=== PATIENT | male | born 1975 | race Caucasian/White ===

== ENCOUNTER → 2016-12-13 13:48 | Emergency (ER) | payer SELFPAY ==
[2016-12-13 13:59] VITALS: BP 103/80
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
== END | disposition home or self-care (01) ==
LOC: ED 13:48
DX: M25.561 Pain in right knee (principal); S60.042A Contusion of left ring finger without damage to nail, initial encounter; S50.01XA Contusion of right elbow, initial encounter; Y04.0XXA Assault by unarmed brawl or fight, initial encounter; Y92.149 Unspecified place in prison as the place of occurrence of the external cause; F43.10 Post-traumatic stress disorder, unspecified; F41.9 Anxiety disorder, unspecified; I10 Essential (primary) hypertension; K21.9 Gastro-esophageal reflux disease without esophagitis; M77.9 Enthesopathy, unspecified
CPT/HCPCS: 99281

== ENCOUNTER 2017-02-06 07:22 | Day surgery (SDC) | payer OTHER ==
[~2017-02-06 07:22] MED LIST: Buffered Lidocaine 0.9% SYRIN* 5 ML/SYR SYRINGE INTRADERM ONE
[2017-02-06] MEDS ORDERED: Buffered Lidocaine 0.9% SYRIN* 5 ML/SYR SYRINGE ONE (07:32)
[2017-02-06] MEDS ORDERED: ceFAZolin 2 GM PREMIX (*) 2 GM/50 ML BAG IVPB ONE (07:32)
[2017-02-06] MEDS ORDERED: fentaNYL* 50 MCG/ML 2 ML VIAL (100 MCG VIAL) ONE ×2 (08:49→10:20)
[2017-02-06] MEDS ORDERED: Midazolam* 1 MG/ML 2 ML VIAL (2 MG) ONE (08:49)
[2017-02-06] MEDS ORDERED: Glycopyrrolate IV* 0.2 MG/ML 1 ML VIAL ONE (08:57)
[2017-02-06] MEDS ORDERED: EPINEPHrine AMP 1 MG/ML ONE (09:28)
[2017-02-06] MEDS ORDERED: Ondansetron INJ* 2 MG/ML VIAL ONE (09:54)
[2017-02-06] MEDS ORDERED: Dexamethasone IV* 4 MG/ML 1 ML (4 MG) ONE (09:54)
[2017-02-06] MEDS ORDERED: Ketorolac INJ* 30 MG/ML 1 ML VIAL ONE (09:54)
[2017-02-06] MEDS ORDERED: Lidocaine 2% PF * 5 ML VIAL ONE (09:54)
[2017-02-06] MEDS ORDERED: Propofol* 10 MG/ML 20 ML BTL IV PUSH ONE (09:54)
[2017-02-06] MEDS ORDERED: Bupivacaine 0.5% SDV PF* 30 ML VIAL ONE (10:16)
[2017-02-06] MEDS ORDERED: HYDROmorphone INJ* 1 MG/ML CARPUJECT SYRINGE IV PRN (10:59)
[2017-02-06] MEDS ORDERED: Acetaminophen TAB* 325 MG PO PRN (10:59)
[2017-02-06] MEDS ORDERED: Acetaminophen TAB* 325 MG ONE (11:45)
[2017-02-06 12:09] VITALS: BP 132/87
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
== END 2017-02-06 12:32 | disposition home or self-care (01) ==
LOC: OR 07:22
PROVIDERS: ATTEND Orthopaedic Surgery
DX: S83.241A Other tear of medial meniscus, current injury, right knee, initial encounter (principal); M94.8X6 Other specified disorders of cartilage, lower leg; M67.51 Plica syndrome, right knee; Y04.2XXA Assault by strike against or bumped into by another person, initial encounter; Y92.9 Unspecified place or not applicable; I10 Essential (primary) hypertension; M20.012 Mallet finger of left finger(s); K21.9 Gastro-esophageal reflux disease without esophagitis
CPT/HCPCS: A9270-GY; J0171; J0690; J1100; J1885; J2250; J2405; J2704; J3010

== ENCOUNTER 2018-03-14 12:02 | Observation (INO) | payer BC, OTHER ==
--- OUTSIDE RECORDS SUMMARY | 2018-03-14 12:28 | XMS REPORT | Continuity of Care Document ---
:1975 External Reference #:[id number] Author Name Rosemarie Ochoa Care Team Providers Name Role Phone Elise Parra FNP Primary Care Physician Unavailable Payers Type Date Identification Numbers Payment Provider Subscriber Effective: Policy Number: [id number] [facility] Juan Malcolm 2013 PayID: [id number] [address] [place] [address] Onset: 2013 Policy Number: [facility] Juan Malcolm [id number] Group Number: [id number] [address] [address] Group Name: [phone] ([address] [address] PayID: STATE Onset: 2013 Policy Number: [facility] Juan Malcolm [id number] Group Number: [id number] [address] [address] Group Name: [phone] [place], [place] PayID: STATE Effective: 2016 Policy Number: [id number] [facility] Juan Malcolm Onset: 2016 Group Number: [id number] [address] [address] Group Name: [place] [address] PayID: [facility] Advance Directives Description No Information Available Problems Description No Information Family History Date Family Member(s) Problem(s) Comments General Heart Disease General Diabetes General Cancer Social History Type Date Description Comments Sex Unknown 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 at night dx- ble edema Compression Active Misc 1units wear R60.0 Mckenna Stockings 20/30 016 during Jamarcus, day, off M.D. at night dx- ble edema Lisinopril Active 10mg daily Unknown [address] 20mg 1 by Unknown 000 mouth every day Multivitamin Active Tablets 1 by Unknown Adult 000 mouth every day Letrizine Active 5mg once a Unknown 000 day Oxycodone-Aceta Hx Tablets 5-325mg 30tabs 1-2 by Bro Lantigua minophen 017 - mouth Naveen, every MD Patel 4-6 hours as needed for pain. Aspirin Ec Hx Tablets DR 325mg 30tabs take 1 Bro Lantigua 017 - tab by Naveen, mouth MD Saeed every day x 14 days. with food. Cephalexin Hx Capsules 500mg 9caps take one Bro Lantigua 017 - tab by Naveen, mouth MD Saeed every 8 hours until you have used all of them. Hydrocodone-Adair Hx Tablets 5-325mg 60tabs 1 tab by R60.0 Mckenna taminophen 016 - mouth Jamarcus, every 6 M.D. 017 hours as needed for pain [place] Hx Tablets 5-325mg 30tabs 1-2 by Desiree 014 - mouth Paige-You every 4 ng, M.D. 015 hours as needed Prilosec Hx Unknown 000 - 016 Medications Administered in Office Medication Date Status Form Strength Qnty SIG Indications Ordering Provider Depomedrol Administered Injection Cherelle 40MG 019 KALLI Pablo Immunizations Description No Information Available Vital Signs Date Vital Result Comment 03/13/2018 9:54am Heart Rate 92 /min BP Systolic 140 mmHg BP Diastolic 88 mmHg Respiratory Rate 18 /min Pain Level 5 07/16/2017 1:57pm Heart Rate 76 /min Respiratory Rate 16 /min Body Temperature 97.5 F 07/10/2017 3:10pm Heart Rate 96 /min BP Systolic Sitting 124 mmHg BP Diastolic Sitting 86 mmHg Respiratory Rate 18 /min Body Temperature 98.1 F 03/14/2017 10:26am Height 69 inches 5'9" Weight 215.00 lb BP Systolic 121 mmHg BP Diastolic 74 mmHg Respiratory Rate 18 /min Pain Level 2 BMI (Body Mass Index) 31.7 kg/m2 02/19/2017 8:10am Height 69 inches 5'9" Weight 208.00 lb Heart Rate 71 /min Respiratory Rate 15 /min Body Temperature 97.2 F Pain Level 4 BMI (Body Mass Index) 30.7 kg/m2 01/23/2017 2:23pm Height 69 inches 5'9" Weight 208.00 lb Heart Rate 74 /min Respiratory Rate 16 /min Body Temperature 98.9 F Pain Level 4 BMI (Body Mass Index) 30.7 kg/m2 01/01/2017 1:18pm Height 69 inches 5'9" Weight 208.00 lb BP Systolic 122 mmHg BP Diastolic 78 mmHg Respiratory Rate 16 /min Body Temperature 98.1 F Pain Level 7 BMI (Body Mass Index) 30.7 kg/m2 12/18/2016 1:06pm Height 69 inches 5'9" Weight 208.00 lb BP Systolic 123 mmHg BP Diastolic 79 mmHg Respiratory Rate 15 /min Body Temperature 97.9 F Pain Level 8 BMI (Body Mass Index) 30.7 kg/m2 03/16/2016 8:54am Height 69 inches 5'9" Weight 210.00 lb Respiratory Rate 19 /min Pain Level 4 BMI (Body Mass Index) 31.0 kg/m2 02/29/2016 8:02am Height 69 inches 5'9" Weight 210.00 lb Heart Rate 92 /min BP Systolic 159 mmHg BP Diastolic 98 mmHg Pain Level 10 BMI (Body Mass Index) 31.0 kg/m2 02/20/2016 2:23pm Height 69 inches 5'9" Weight 210.00 lb Heart Rate 88 /min BP Systolic 120 mmHg BP Diastolic 80 mmHg BMI (Body Mass Index) 31.0 kg/m2 02/15/2016 8:39am Body Temperature 97.6 F 02/10/2016 1:53pm Weight 213.00 lb Heart Rate 80 /min BP Systolic 150 mmHg BP Diastolic 90 mmHg Respiratory Rate 16 /min Body Temperature 97.5 F 01/31/2016 8:52am Height 69 inches 5'9" Weight 205.00 lb Heart Rate 76 /min BP Systolic 142 mmHg BP Diastolic 84 mmHg Respiratory Rate 18 /min Body Temperature 97.1 F BMI (Body Mass Index) 30.3 kg/m2 06/08/2015 10:26am Height 69 inches 5'9" Weight 210.00 lb Pain Level 10 BMI (Body Mass Index) 31.0 kg/m2 04/26/2015 10:07am Height 69 inches 5'9" Weight 210.00 lb BMI (Body Mass Index) 31.0 kg/m2 07/21/2014 7:59am Height 69 inches 5'9" Weight 210.00 lb Pain Level 6 BMI (Body Mass Index) 31.0 kg/m2 06/02/2014 8:14am Height 69 inches 5'9" Weight 210.00 lb Pain Level 4 BMI (Body Mass Index) 31.0 kg/m2 05/06/2014 9:53am Height 69 inches 5'9" Weight 210.00 lb Heart Rate 87 /min BP Systolic 132 mmHg BP Diastolic 82 mmHg Body Temperature 96.3 F Pain Level 5 BMI (Body Mass Index) 31.0 kg/m2 04/19/2014 9:13am Height 69 inches 5'9" Weight 210.00 lb Heart Rate 103 /min BP Systolic 136 mmHg BP Diastolic 88 mmHg BMI (Body Mass Index) 31.0 kg/m2 03/02/2014 8:30am Height 69 inches 5'9" Weight 210.00 lb Pain Level 10 BMI (Body Mass Index) 31.0 kg/m2 01/20/2014 10:46am Height 69 inches 5'9" Weight 205.00 lb Heart Rate 84 /min BP Systolic 123 mmHg BP Diastolic 78 mmHg BMI (Body Mass Index) 30.3 kg/m2 01/04/2014 2:23pm Height 69 inches 5'9" Weight 205.00 lb Heart Rate 89 /min BP Systolic 145 mmHg BP Diastolic 83 mmHg BMI (Body Mass Index) 30.3 kg/m2 11/11/2013 9:10am Height 69 inches 5'9" Weight 200.00 lb Heart Rate 84 /min BMI (Body Mass Index) 29.5 kg/m2 10/14/2013 7:54am Height 69 inches 5'9" Weight 200.00 lb Heart Rate 85 /min BP Systolic 120 mmHg BP Diastolic 79 mmHg BMI (Body Mass Index) 29.5 kg/m2 09/22/2013 11:03am Height 69 inches 5'9" Weight 200.00 lb Pain Level 0 BMI (Body Mass Index) 29.5 kg/m2 09/08/2013 1:44pm Height 69 inches 5'9" Weight 200.00 lb Pain Level 0 BMI (Body Mass Index) 29.5 kg/m2 08/26/2013 10:58am Height 69 inches 5'9" Weight 200.00 lb Heart Rate 74 /min BP Systolic 119 mmHg BP Diastolic 79 mmHg BMI (Body Mass Index) 29.5 kg/m2 08/05/2013 3:45pm Height 69 inches 5'9" Weight 200.00 lb Heart Rate 98 /min BP Systolic 113 mmHg BP Diastolic 72 mmHg BMI (Body Mass Index) 29.5 kg/m2 07/15/2013 10:24am Height 69 inches 5'9" Heart Rate 85 /min BP Systolic 122 mmHg BP Diastolic 81 mmHg 07/06/2013 10:20am Height 69 inches 5'9" Weight 200.00 lb Heart Rate 93 /min BP Systolic 136 mmHg BP Diastolic 98 mmHg BMI (Body Mass Index) 29.5 kg/m2 Results Test Date Facility Test Result H/L Range Note Laboratory test 02/01/2017 [facility] TSH (Thyroid 2.21 N 0.34 -5.[address] Stimulating mcIU/[place] [address] Horm) [phone] Surgical 01/07/2014 [facility] S RUN DATE: [address] [place] [address] NOTE> [phone] 1 RUN DATE: 01/11/14 [facility] LAB LIVE PAGE 1 RUN TIME: [id number] [place], [place] [address] Specimen Inquiry Name: JUAN MALCOLM : [address]: Desiree Bang Acct: [id number] Unit: [id number] AGE: 38 Location: [facility] Re01/07/14 SEX: M [place] [facility] [place]: [id number] SHAYY: 01/07/14- [facility] DR: Desiree Bang MD REQ: [id number] RECD: 01/08/14 STATUS: SOUT _ ORDERED: LEVEL I FINAL DIAGNOSIS Left ring metacarpal, hardware removal: Foreign bodies (orthopedic hardware) (Gross diagnosis). PRE-OPERATIVE DIAGNOSIS Ring finger metacarpal fracture with retained hardware GROSS DESCRIPTION The specimen is received fresh labeled Juan Malcolm, Hardware Left Ring Metacarpal Five Screws One Plate and consists of five metal screws measuring up to 1.0 cm. and a 2.8 x 0.3 x 0.2 cm. metal plate with six round holes. Per established hospital medical staff protocol no tissue is submitted. Gross only. Signed (signature on file) Daren Kent MD 1347 END OF REPORT * ML=Testing performed at Main Lab DEPARTMENT OF PATHOLOGY, [address] [place] [address] Daren Kent M.D. Director [facility] # [id number] Procedures Date Code Description Status 07/10/2017 88623 Excision,Benign,Face,Ears,Eyelids,Nose,Lips 0.6 To 1.0 CM Completed 02/06/2017 33703 Arthroscopy,Knee,Meniscectomy Medial Or Lateral Completed 02/06/2017 79884 Arthroscopy,Knee,Meniscectomy Medial Or Lateral Completed 02/06/2017 99067 Arthroscopy,Knee,Meniscectomy Medial Or Lateral Completed 02/01/2017 04091 EKG, Interpretation Only Completed 02/10/2016 11284 Excision,Benign,Face,Ears,Eyelids,Nose,Lips 0.6 To 1.0 CM Completed 04/22/2014 94567 Neuroplasty &/Or Transposition; Ulnar Nerve AT Elbow Completed 04/22/2014 05235 Neuroplasty &/Or Transposition; Ulnar Nerve AT Elbow Completed 04/22/2014 04011 Neuroplasty &/Or Transposition; Ulnar Nerve AT Elbow Completed 04/22/2014 02575 Neuroplasty &/Or Transposition; Ulnar Nerve AT Elbow Completed 01/07/201406371 Removal Implant Deep Wire,Screw Nail,Trey Or Plate Completed 01/07/201408488 Removal Implant Deep Wire,Screw Nail,Trey Or Plate Completed 01/07/201418262 Removal Implant Deep Wire,Screw Nail,Trey Or Plate Completed 01/07/201453683 Removal Implant Deep Wire,Screw Nail,Trey Or Plate Completed 11/11/2013 09946 Rad Exam; Hand Limited Completed 10/14/2013 09361 Rad Exam; Hand Limited Completed 09/22/2013 54571 Rad Exam; Hand Limited Completed 09/22/2013 44383 Rad Exam; Hand Limited Completed 09/08/2013 89601 Rad Exam; Hand Limited Completed 09/08/2013 48550 Rad Exam; Hand Limited Completed 09/08/2013 89193 Short Arm Splint Application Completed 09/08/2013 66375 Short Arm Splint Application Completed 08/27/2013 75430 open tx of metacarpal fx,single inclds internal fixation Completed when per 08/27/2013 55810 open tx of metacarpal fx,single inclds internal fixation Completed when per 08/27/2013 65640 open tx of metacarpal fx,single inclds internal fixation Completed when per 08/27/2013 74453 open tx of metacarpal fx,single inclds internal fixation Completed when per 08/26/2013 54877 Short Arm Splint Application Completed 08/26/2013 12133 Short Arm Splint Application Completed Encounters Type Date Location Provider Dx Diagnosis Office Visit 03/14/2017 Orthopedic Bro Lantigua S83.241D Oth tear of 10:00a [facility] Hodge MD medial meniscus, current injury, r knee, subs M20.012 Mallet finger of left finger(s) Office Visit 01/23/2017 3:15p Orthopedic Bro Lantigua M25.561 Pain in [facility] Hodge MD right knee S83.241D Oth tear of medial meniscus, current injury, r knee, subs M20.012 Mallet finger of left finger(s) Office Visit 01/01/2017 1:45p Leah Lantigua M25.561 Pain in [facility] Hodge MD right knee M20.012 Mallet finger of left finger(s) M25.521 Pain in right elbow M25.511 Pain in right shoulder M54.5 Low back pain Office Visit 12/18/2016 1:00p Leah Lantigua M25.521 Pain in [facility] Hodge MD right elbow M25.561 Pain in right knee M20.012 Mallet finger of left finger(s) Office Visit 03/16/2016 9:15a Orthopedic Mckenna Ricketts, R60.0 Localized edema Services Of bJ Mcallister M79.605 Pain in left leg Office Visit 02/29/2016 8:00a Orthopedic Mckenna Ricketts R60.0 Localized edema [facility] Mcallister M79.605 Pain in left leg Office Visit 02/20/2016 2:00p Leah Ricketts R60.0 Localized edema [facility] Mcallister M79.605 Pain in left leg Office Visit 01/31/2016 Surgical Rajendra Morley.3 Sebaceous cyst 9:00a [facility] Top Icer Office Visit 06/08/2015 Orthopedic Deep Pang M.D. S83.232D Complex tear of 10:15a Services Of medial mensmigdalia, TamicaMScout current injury, l knee, subs S83.92xD Sprain of unspecified site of left knee, subs encntr S83.232D Complex tear of medial mensc, current injury, l knee, subs Office Visit 04/26/2015 10:00a Orthopedic Blane Christianson, G56.22 Lesion of Services Of Jb ESPOSITO ulnar nerve, left upper limb S62.335A Disp fx of neck of fourth metacarpal bone, left hand, init M25.522 Pain in left elbow M25.532 Pain in left wrist S62.335S Disp fx of neck of fourth MC bone, left hand, sequela Office Visit 07/21/2014 8:15a Orthopedic Desiree 354.2 Lesion Ulnar Services Of Esvin Bang Nerve C.M.A. 354.2 Lesion Ulnar Nerve 996.78 Complication Due To Internal Orthopedic Device Implant Other 841.8 Sprains & Strains Elbow & Forearm Other Spec Sites Office Visit 03/02/2014 8:30a Orthopedic Desiree 354.2 Lesion Ulnar [facility] Esvin Bang Nerve C.M.A. 841.8 Sprains & Strains Elbow & Forearm Other Spec Sites Office Visit 08/26/2013 Orthopedic Desiree 815.00 FX Metacarpal 11:00a Services Of Esvin Bang Bone(S) Closed C.M.A. Site Unspec 815.00 FX Metacarpal Bone(S) Closed Site Unspec Office Visit 08/05/2013 4:00p Orthopedic Services Deep Pang, 844.9 Sprains & Of Jb Mcallister Strains Knee & Leg Unspec 924.10 Contusion Lower Leg Office Visit 07/15/2013 11:15a Orthopedic Guerline Fung, 844.9 Sprains & Services Of Jb BOSCH Strains Knee & Leg Unspec 924.10 Contusion Lower Leg Office Visit 07/06/2013 10:00a Orthopedic Services Deep Pang, 844.9 Sprains & Of Jb Mcallister Strains Knee & Leg Unspec 924.10 Contusion Lower Leg Plan of Treatment Future Appointment(s):06/12/2018 10:45 am - Bro Hodge MD at [facility]
[2018-03-14 13:26] LABS: Hematocrit 46 % (42-52); Hemoglobin 15.3 g/dl (14.0-18.0); Mean Corpuscular HGB Conc 33 g/dl (31-36); Mean Corpuscular Hemoglobin 29 pg (27-31); Mean Corpuscular Volume 86 fL (80-94); Mean Platelet Volume 7.8 fL (7.4-10.4); Platelet Count 223 10^3/ul (150-450); Red Blood Count 5.35 10^6/ul (4.00-5.40); Red Cell Distribution Width 14 % (10.5-15); White Blood Count 27.3 10^3/ul (3.5-10.8)
[2018-03-14 13:40] LABS: Activated Partial Thrombo Time 26.3 seconds (26.0-36.3); INR 0.99 (0.77-1.02)
[2018-03-14] MEDS ORDERED: Piperacillin/Tazobac ADVAN(*) 3.375 GM in NS 0.9% 100 ML* 100 ML IVPB ONE (13:42)
[2018-03-14 13:44] LABS: Potassium 4.6 mmol/L (3.5-5.0)
[2018-03-14 13:45] LABS: Albumin 4.5 g/dL (3.2-5.2); BUN/Creatinine Ratio 14.3 (8-20); Calcium 9.3 mg/dL (8.6-10.3); EGFR Non-African American 49.3 (>60); Globulin 2.2 g/dL (2-4); Magnesium 2.1 mg/dL (1.9-2.7); Total Bilirubin 0.4 mg/dL (0.2-1.0); Total Protein 6.7 g/dL (6.4-8.9)
[2018-03-14] MEDS: NS 0.9% 1000 ML*IV.FLUID IV ONE ×2 (14:12→15:47)
[2018-03-14 14:14] LABS: TSH (Thyroid Stimulating Horm) 1.22 mcIU/mL (0.34-5.60)
[2018-03-14 14:19] LABS: ABS Basophils 0.1 10^3/ul (0-0.2); ABS Eosinophils 0 10^3/ul (0-0.6); ABS Lymphocytes 0.9 10^3/ul (1.0-4.8); ABS Neutrophils 25.3 10^3/ul (1.5-7.7); ABS Nucleated RBC 0 10^3/ul; Eosinophil % 0 %; Lymphocyte % 3.2 %; Nucleated Red Blood Cells % 0
[2018-03-14 14:30] LABS: Urine Appearance Cloudy; Urine Bilirubin Negative (Negative); Urine Blood Negative (Negative); Urine Color Yellow; Urine Glucose Negative (Negative); Urine Ketones Negative (Negative); Urine Nitrite Negative (Negative); Urine Protein Negative (Negative); Urine Specific Gravity 1.028 (1.010-1.030); Urine Urobilinogen Negative (Negative)
[2018-03-14] MEDS ORDERED: Ondansetron INJ* 2 MG/ML VIAL IV PRN (14:59)
[2018-03-14] MEDS ORDERED: Acetaminophen TAB* 325 MG PO PRN (14:59)
[2018-03-14] MEDS ORDERED: Zosyn per Pharmacy* NOTE FOLLOW UP SCH (15:00)
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
[2018-03-14 15:44] LABS: C Reactive Protein 1.9 mg/L (<8.01)
[2018-03-14 16:48] LABS: Erythrocyte Sed Rate 3 mm/Hr (0-14)
[2018-03-14] MEDS: NS 0.9% 1000 ML* 1,000 ML IV SCH (17:44)
[2018-03-14] MEDS: ZOSYN 3.375 GM Q8H per EXTENDED INFUSION IVPB SCH ×2 (17:44)
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
[2018-03-14] MEDS: Heparin VIAL(*) 5000 UNITS/ML VIAL (FIVE THOUSAND) SUBCUT SCH (23:30)
[2018-03-15] MEDS: NS 0.9% 1000 ML* 1,000 ML IV SCH (02:09)
[2018-03-15] MEDS: ZOSYN 3.375 GM Q8H per EXTENDED INFUSION IVPB SCH ×6 (02:09→17:47)
[2018-03-15 07:03] LABS: ABS Basophils 0 10^3/ul (0-0.2); ABS Eosinophils 0 10^3/ul (0-0.6); ABS Lymphocytes 1.6 10^3/ul (1.0-4.8); ABS Monocytes 1.2 10^3/ul (0-0.8); ABS Neutrophils 15.2 10^3/ul (1.5-7.7); ABS Nucleated RBC 0 10^3/ul; Eosinophil % 0 %; Hematocrit 41 % (42-52); Hemoglobin 13.6 g/dl (14.0-18.0); Lymphocyte % 8.7 %; Mean Corpuscular HGB Conc 34 g/dl (31-36); Mean Corpuscular Hemoglobin 29 pg (27-31); Mean Corpuscular Volume 86 fL (80-94); Nucleated Red Blood Cells % 0; Platelet Count 181 10^3/ul (150-450); Red Cell Distribution Width 14 % (10.5-15)
[2018-03-15 07:19] LABS: Calcium 8.1 mg/dL (8.6-10.3); EGFR Non-African American 61.6 (>60); Potassium 4.2 mmol/L (3.5-5.0)
[2018-03-15] MEDS: Heparin VIAL(*) 5000 UNITS/ML VIAL (FIVE THOUSAND) SUBCUT SCH ×2 (07:28→14:20)
[2018-03-15] MEDS: Lisinopril TAB* 10 MG PO SCH (08:16)
[2018-03-15] MEDS: Cetirizine* 10 MG TAB PO SCH (08:16)
[2018-03-15] MEDS: Omeprazole CAP (NF) 20 MG CAP.DR PO SCH (08:16)
[2018-03-15] MEDS: BOSWELLIA SERRA PO SCH (08:17)
[2018-03-15] MEDS: CLOMIPHENE CITRATE PO SCH (08:17)
[2018-03-15] MEDS: D3 PO SCH (08:17)
[2018-03-15] MEDS: GLUCOSAMINE PO SCH (08:17)
--- NOTE | 2018-03-15 17:59 | PN ---
Subjective Date of Service: 03/15/18 Interval History: No complaints Ambulating on unit No cough, SOB, SMITH, LH, flushing, N/V diarrea Does report some tightness but not pain in right knee Objective Active Medications: Acetaminophen (Tylenol Tab*) 650 mg PO Q4H PRN PRN Reason: FEVER/PAIN Cetirizine HCl (Zyrtec*) 20 mg PO QAM [facility] Last Admin: 03/15/18 08:16 Dose: 20 mg Heparin Sodium (Porcine) (Heparin Vial(*)) 5,000 units SUBCUT Q8HR [facility] Last Admin: 03/15/18 14:20 Dose: 5,000 units Sodium Chloride (Ns 0.9% 1000 Ml*) 1,000 mls @ 125 mls/hr IV PER RATE [facility] Stop: 03/15/18 22:59 Last Admin: 03/15/18 02:09 Dose: 125 mls/hr Piperacillin Sod/Tazobactam (Sod 3.375 gm/ Sodium Chloride) 100 mls @ 25 mls/ hr IVPB Q8H [facility] Last Admin: 03/15/18 10:09 Dose: 25 mls/hr [facility]inop[facility] ([facility]inivil Tab*) [facility] [place] Admin: 03/15/18 08:16 Dose: 10 mg Non-Formulary Medication (Glucosamine/D3/Boswellia Yenny [Osteo Bi-Flex Caplet] ) 1 tab PO DAILY [facility] Last Admin: 03/15/18 08:17 Dose: Not Given Non-Formulary Medication (Clomiphene Citrate [Clomiphene Citrate]) 12.5 mg PO DAILY [facility] Last Admin: 03/15/18 08:17 Dose: Not Given Omeprazole (Prilosec Cap*) 20 mg PO QAM@0730 [facility] Last Admin: 03/15/18 08:16 Dose: 20 mg Ondansetron HCl (Zofran Inj*) 4 mg IV Q4H PRN PRN Reason: NAUSEA/VOMITING Pharmacy Consult (Zosyn Per Pharmacy*) 1 note FOLLOW UP .ZOSYN PER PHARMACY [facility] Vital Signs - 8 hr 03/15/18 03/15/18 10:17 11:38 Temperature 98.1 F 97.4 F Pulse Rate 92 84 Respiratory 16 20 Rate Blood Pressure 121/64 118/64 (mmHg) O2 Sat by Pulse 97 95 Oximetry Oxygen Devices in Use Now: None Appearance: NAD Eyes: No Scleral Icterus Ears/Nose/Mouth/Throat: NL Teeth, Lips, Gums, Clear Oropharnyx Neck: NL Appearance and Movements; NL JVP Respiratory: Symmetrical Chest Expansion and Respiratory Effort, Clear to Auscultation Cardiovascular: NL Sounds; No Murmurs; No JVD, RRR Abdominal: NL Sounds; No Tenderness; No Distention, No Hepatosplenomegaly Lymphatic: No Cervical Adenopathy Extremities: No Edema, - - right knee nttp, FROM with very little limitation in flexion, no pain with passive ROM Neurological: Alert and Oriented x 3 Result Diagrams: 03/15/18 06:35 03/15/18 06:35 Additional Lab and Data: Lab Results 03/14/18 03/14/18 03/14/18 Range/Units 12:26 12:26 12:26 WBC 27.3 H (3.5-10.8) 10^3/ul RBC 5.35 (4.00-5.40) 10^6/ul Hgb 15.3 (14.0-18.0) g/dl Hct 46 (42-52) % MCV 86 (80-94) fL MCH 29 (27-31) pg MCHC 33 (31-36) g/dl RDW 14 (10.5-15) % Plt Count 223 (150-450) 10^3/ul MPV 7.8 (7.4-10.4) fL Neut % (Auto) 92.8 % Lymph % (Auto) 3.2 % [place] % (Auto) 3.7 % Eos % (Auto) 0 % Baso % (Auto) 0.3 % Absolute Neuts (auto) 25.3 H (1.5-7.7) 10^3/ul Absolute Lymphs (auto) 0.9 L (1.0-4.8) 10^3/ul Absolute Monos (auto) 1.0 H (0-0.8) 10^3/ul Absolute Eos (auto) 0 (0-0.6) 10^3/ul Absolute Basos (auto) 0.1 (0-0.2) 10^3/ul Absolute Nucleated RBC 0 10^3/ul Nucleated RBC % 0 ESR Pending INR (Anticoag Therapy) (0.77-1.02) APTT (26.0-36.3) seconds D-Dimer, Quantitative (Less Than 230) ng/mL Sodium 138 (135-145) mmol/L Potassium 4.6 (3.5-5.0) mmol/L Chloride 107 (101-111) mmol/L Carbon Dioxide 24 (22-32) mmol/L Anion Gap 7 (2-11) mmol/L BUN 22 (6-24) mg/dL Creatinine 1.54 H (0.67-1.17) mg/dL Est GFR ( Amer) 59.7 (>60) Est GFR (Non-Af Amer) 49.3 (>60) BUN/Creatinine Ratio 14.3 (8-20) Glucose 136 H (70-100) mg/dL Lactic Acid 1.3 (0.5-2.0) mmol/L Calcium 9.3 (8.6-10.3) mg/dL Magnesium 2.1 (1.9-2.7) mg/dL Total Bilirubin 0.40 (0.2-1.0) mg/dL AST 17 (13-39) U/L ALT 27 (7-52) U/L Alkaline Phosphatase 60 (34-104) U/L CK-MB (CK-2) 3.2 (0.6-6.3) ng/mL Troponin I 0.03 (<0.04) ng/mL C-Reactive Protein Pending Total Protein 6.7 (6.4-8.9) g/dL Albumin 4.5 (3.2-5.2) g/dL Globulin 2.2 (2-4) g/dL Albumin/Globulin Ratio 2.0 (1-3) TSH 1.22 (0.34-5.60) mcIU/mL Urine Color Urine Appearance Urine pH (5-9) Ur Specific [place] (1.010-1.030) Urine Protein (Negative) Urine Ketones (Negative) Urine Blood (Negative) Urine Nitrate (Negative) Urine Bilirubin (Negative) Urine Urobilinogen (Negative) Ur Leukocyte Esterase (Negative) Urine Glucose (Negative) Urine Ascorbic Acid (Negative) 03/14/18 03/14/18 Range/Units 12:26 14:10 WBC (3.5-10.8) 10^3/ul RBC (4.00-5.40) 10^6/ul Hgb (14.0-18.0) g/dl Hct (42-52) % MCV (80-94) fL MCH (27-31) pg MCHC (31-36) g/dl RDW (10.5-15) % Plt Count (150-450) 10^3/ul MPV (7.4-10.4) fL Neut % (Auto) % Lymph % (Auto) % [place] % (Auto) % Eos % (Auto) % Baso % (Auto) % Absolute Neuts (auto) (1.5-7.7) 10^3/ul Absolute Lymphs (auto) (1.0-4.8) 10^3/ul Absolute Monos (auto) (0-0.8) 10^3/ul Absolute Eos (auto) (0-0.6) 10^3/ul Absolute Basos (auto) (0-0.2) 10^3/ul Absolute Nucleated RBC 10^3/ul Nucleated RBC % ESR INR (Anticoag Therapy) 0.99 (0.77-1.02) APTT 26.3 (26.0-36.3) seconds D-Dimer, Quantitative < 200 (Less Than 230) ng/mL Sodium (135-145) mmol/L Potassium (3.5-5.0) mmol/L Chloride (101-111) mmol/L Carbon Dioxide (22-32) mmol/L Anion Gap (2-11) mmol/L BUN (6-24) mg/dL Creatinine (0.67-1.17) mg/dL Est GFR ( Amer) (>60) Est GFR (Non-Af Amer) (>60) BUN/Creatinine Ratio (8-20) Glucose (70-100) mg/dL Lactic Acid (0.5-2.0) mmol/L Calcium (8.6-10.3) mg/dL Magnesium (1.9-2.7) mg/dL Total Bilirubin (0.2-1.0) mg/dL AST (13-39) U/L ALT (7-52) U/L Alkaline Phosphatase (34-104) U/L CK-MB (CK-2) (0.6-6.3) ng/mL Troponin I (<0.04) ng/mL C-Reactive Protein Total Protein (6.4-8.9) g/dL Albumin (3.2-5.2) g/dL Globulin (2-4) g/dL Albumin/Globulin Ratio (1-3) TSH (0.34-5.60) mcIU/mL Urine Color Yellow Urine Appearance Cloudy Urine pH 5.0 (5-9) Ur Specific [place] 1.028 (1.010-1.030) Urine Protein Negative (Negative) Urine Ketones Negative (Negative) Urine Blood Negative (Negative) Urine Nitrate Negative (Negative) Urine Bilirubin Negative (Negative) Urine Urobilinogen Negative (Negative) Ur Leukocyte Esterase Negative (Negative) Urine Glucose Negative (Negative) Urine Ascorbic Acid * A (Negative) Microbiology and Other Data: Microbiology 03/14/18 15:00 Aerobic Blood Culture - Preliminary Blood Venous No Growth Day 1 Anaerobic Blood Culture - Preliminary No Growth Day 1 03/14/18 14:10 Aerobic Blood Culture - Preliminary Blood Venous No Growth Day 1 Anaerobic Blood Culture - Preliminary No Growth Day 1 03/14/18 15:45 Influenza Types A,B Antigen - Final Nasal Specimen received for Influenza A/B Molecular testing Assess/Plan/Problems-Billing Assessment: 42 yo M p/w tachycardia and flushing 1 day s/p right knee steroid injection - Patient Problems (1) Sepsis Comment: dought infection at this point however meets criteria for sepsis. Continue zosyn until blood cultures return negative nominal ESR and CRP argue for non infectious etiology 5% of pt with joint injection can develop facial flushing up to 3 days post procedure Leukocytosis seems out of proportion to quantity of steroids that would need to be systemically absorbed but is a compelling etiology for its presence in abscence of other infectious sources (2) Hypertension Comment: lisinopril (3) DVT prophylaxis Comment: HSQ Status and Disposition: pending negative cultures
[2018-03-15] MEDS ORDERED: Docusate CAP* 100 MG PO PRN (21:32)
[2018-03-15] MEDS ORDERED: Senna TAB PO PRN (21:32)
[2018-03-15] MEDS ORDERED: Magnesium Hydroxide LIQ* 30 ML UDC PO PRN (21:32)
[2018-03-16] MEDS: Heparin VIAL(*) 5000 UNITS/ML VIAL (FIVE THOUSAND) SUBCUT SCH ×2 (00:35→06:35)
[2018-03-16] MEDS: ZOSYN 3.375 GM Q8H per EXTENDED INFUSION IVPB SCH ×4 (01:48→11:36)
[2018-03-16] MEDS: Cetirizine* 10 MG TAB PO SCH (08:11)
[2018-03-16] MEDS: Omeprazole CAP (NF) 20 MG CAP.DR PO SCH (08:11)
[2018-03-16] MEDS: Lisinopril TAB* 10 MG PO SCH (08:11)
[2018-03-16 10:40] LABS: ABS Basophils 0.1 10^3/ul (0-0.2); ABS Eosinophils 0.1 10^3/ul (0-0.6); ABS Lymphocytes 1.9 10^3/ul (1.0-4.8); ABS Monocytes 0.8 10^3/ul (0-0.8); ABS Neutrophils 6.2 10^3/ul (1.5-7.7); ABS Nucleated RBC 0 10^3/ul; Eosinophil % 0.9 %; Hematocrit 47 % (42-52); Hemoglobin 15.6 g/dl (14.0-18.0); Lymphocyte % 21.2 %; Mean Corpuscular HGB Conc 33 g/dl (31-36); Mean Corpuscular Hemoglobin 29 pg (27-31); Mean Corpuscular Volume 87 fL (80-94); Mean Platelet Volume 7.8 fL (7.4-10.4); Nucleated Red Blood Cells % 0; Platelet Count 193 10^3/ul (150-450); Red Blood Count 5.41 10^6/ul (4.00-5.40); Red Cell Distribution Width 14 % (10.5-15)
[2018-03-16 10:55] LABS: BUN/Creatinine Ratio 14.7 (8-20); Calcium 8.8 mg/dL (8.6-10.3); EGFR Non-African American 53.7 (>60); Potassium 3.6 mmol/L (3.5-5.0)
[2018-03-16] MEDS: CLOMIPHENE CITRATE PO SCH (11:14)
[2018-03-16] MEDS: BOSWELLIA SERRA PO SCH (11:14)
[2018-03-16] MEDS: D3 PO SCH (11:14)
[2018-03-16] MEDS: GLUCOSAMINE PO SCH (11:14)
[2018-03-16 12:14] VITALS: BP 134/77
--- NOTE | 2018-03-16 23:01 | DS ---
CC: Dr. Padilla * DISCHARGE SUMMARY: DATE OF ADMISSION: 03/14/18 DATE OF DISCHARGE: 03/16/18 PRIMARY CARE PROVIDER: Dr. Padilla. PRIMARY DIAGNOSES: 1. Leukocytosis of unknown origin. 2. Chronic kidney disease. 3. Acute on chronic kidney injury. SECONDARY DIAGNOSES: Include: 1. Posttraumatic stress disorder. 2. Hypertension. 3. Gastroesophageal reflux disease. MEDICATIONS ON DISCHARGE: Unchanged from admission, include: 1. Clomiphene 12.5 mg daily. 2. Osteo Bi-Flex caplet 1 tab daily. 3. Omeprazole 20 mg daily. 4. Lisinopril 10 mg daily. 5. Levocetirizine 10 mg in the morning. LABORATORY DATA: Pertinent laboratory data, white blood cell count on presentation 27.3, on discharge 9.0. ESR 3. CRP 1.9. Creatinine 1.4 on discharge. HISTORY OF PRESENT ILLNESS AND HOSPITAL COURSE: This is a 42-year-old man with past medical history as outlined in the history of present illness on the day of admission including a history of frequent episodes of flushing and palpitations associated with headache that have been occurring over the last month. He was at work and developed a sensation of intense flushing and palpitations and a heart rate of 130, for which he presented to the emergency room. He was found tachycardic in the emergency room as well as with the leukocytosis. He was presumed to have an infection, started on Zosyn which he was maintained throughout the course of the hospital stay. He was discharged after 48 hours after negative blood cultures. His urine was also bland and his chest x-ray was normal. He had no other localizing symptoms. His sensation of flushing and tachycardia resolved on its own, although he did receive several liters of normal saline. It was noted that he had steroids injected into his right knee the day prior to presentation. There are some case reports of flushing in the setting of joint injection; however, that was described in sacroiliac injections which can occur 1-3 days after injection. I did discuss the care with Dr. Hodge. There is no easily accountable etiology for his leukocytosis from joint injection. However, the discordant leukocytosis elevation absence with an elevated ESR and CRP with symptoms lead me to believe this is all in the setting of his joint injection; however, there is no way to confirm this going forward. In either case, the patient remained stable throughout the course of the hospital stay, ambulating around the floor. We discussed at length. There were no complications during the course of the hospital stay. His leukocytosis resolved. FOLLOWUP: 1. Please evaluate the flushing symptoms that occur intermittently further if they continue to occur. 2. No other specific labs or vitals that need followup. Reasons to return to the hospital including, but not limited to recurrent or worsening symptoms including flushing, lightheadedness, loss of consciousness, near loss of consciousness, palpitations, tachycardia, chest pain, fevers, chills, night sweats, or inability to obtain or tolerate medications were discussed with the patient. TIME SPENT: Greater than 60 minutes was spent on discharge of this patient. [id number]/[facility] #: [id number] CHOLOD
== END 2018-03-16 12:58 | disposition home or self-care (01) ==
LOC: ED 12:02 → MED 14:59
PROVIDERS: ADMIT Internal Medicine; ATTEND Internal Medicine
DX: N18.9 Chronic kidney disease, unspecified (principal); N17.9 Acute kidney failure, unspecified; F43.10 Post-traumatic stress disorder, unspecified; I10 Essential (primary) hypertension; K21.9 Gastro-esophageal reflux disease without esophagitis; H93.19 Tinnitus, unspecified ear; R07.9 Chest pain, unspecified; R51 Headache; D72.829 Elevated white blood cell count, unspecified
CPT/HCPCS: 36415; 70450; 71046; 80048; 80053; 81003; 82553; 83036; 83605; 83735; 84145; 84443; 84484; 85025; 85379; 85610; 85652; 85730; 86140; 87040; 93005; 96365; 96372; 96376; 99283; A9270-GY; J1644; J2543